=== PATIENT | female | born 1955 | race Caucasian/White ===

== ENCOUNTER → 2020-07-26 13:45 | Outpatient (BNVA) | payer MEDICAID, SELFPAY | PROVIDERS: Visit Provider Orthopaedic Surgery | DX: M54.12 Radiculopathy, cervical region (principal) | CPT/HCPCS: 99212 ==

== ENCOUNTER 2021-02-22 14:08 | Outpatient (REF) | payer MEDICAID, SELFPAY ==
--- NOTE | ~2021-02-22 | US_ITS ---
EXAMINATION: US PELVIS CLINICAL INFORMATION: Abnormal vaginal bleeding COMPARISON: None pertinent TECHNIQUE: Ultrasound of the pelvis is performed using both transabdominal and transvaginal transducers along with Doppler. Transvaginal imaging is performed due to inadequate visualization transabdominally. The transabdominal study is limited due to an empty bladder. The transvaginal study is technically limited due to patient's inability to tolerate. FINDINGS: Uterus: The uterus is anteverted and measures 6.1 x 3.4 x 4.0 cm. Incidentally noted small cervical nabothian cysts. The double wall endometrial thickness is 5 mm based on transvaginal imaging. The uterus is smooth in contour and has normal myometrial echogenicity. No visible fibroid. Adnexa: The right ovary is not visualized. The left ovary is only visualized transabdominally. Left ovary measures 1.9 x 1.3 x 1.8 cm. Morphologic evaluation is limited but no dominant mass or cyst is demonstrated. Color Doppler evaluation of the left ovary is unrevealing. There is no pelvic ascites or fluid collection. US/US pelvic and transvaginal IMPRESSION: The endometrium measures approximately 5 mm, borderline for abnormal thickening in this patient with history of postmenopausal vaginal bleeding. Technically limited examination as discussed above.
== END 2021-02-22 14:09 | disposition home or self-care (01) ==
LOC: HO.US 14:08
PROVIDERS: PCP Internal Medicine; Visit Provider Internal Medicine
DX: N93.9 Abnormal uterine and vaginal bleeding, unspecified (principal)
CPT/HCPCS: 76830; 76856

== ENCOUNTER 2023-05-07 11:26 | Outpatient (REF) | payer MEDICARE, SELFPAY ==
[2023-05-07 12:46] LABS: Blood Urea Nitrogen 19 mg/dL (9-16); Estimated Glomerular Filt Rate > 60
== END 2023-05-07 11:27 | disposition home or self-care (01) ==
LOC: HO.LAB 11:26
PROVIDERS: PCP Internal Medicine; Visit Provider Otolaryngology
DX: D49.89 Neoplasm of unspecified behavior of other specified sites (principal)
CPT/HCPCS: 36415; 82565; 84520